=== PATIENT | female | born 2000 ===

== ENCOUNTER 2022-07-07 08:55 | Outpatient (CLI) | payer OTHER | END 2022-07-07 08:56 | disposition home or self-care (01) | LOC: CSHULT 08:55 | PROVIDERS: ATTEND Nurse Practitioner Women's Health | DX: Z34.82 Encounter for supervision of other normal pregnancy, second trimester (principal); Z3A.23 23 weeks gestation of pregnancy | CPT/HCPCS: 76805 ==